=== PATIENT | female | born 1980 | race Caucasian/White ===

== ENCOUNTER 2024-04-27 20:01 | Observation (INO) ==
--- NOTE | 2024-04-27 20:28 | ED.PDOC ---
General ED Provider: Dr. KATHARINE COX Chief Complaint: Extremity Swelling/Pain Stated Complaint: Patient is a 44-year-old female who comes to the emergency department with complaints of a 1 week history of right leg being more swollen than the left. She states he has a history of CHF and also has a history of DVT x 3 all of which were due to immobilization secondary to his surgery. Patient states that she has been out of her diabetic medication for couple months now and has not been checking her blood sugar either. She states she moved from [place] and is trying to find a new primary care doctor in [place]. Time Seen by Provider: 04/27/24 20:21 Mode of Arrival: Walk-In Information Source: Patient and Family Nursing and Triage Documentation Reviewed and Agree: Yes What is Opioid Naive?: *Opioid Naive implies the patient is not already taking opioids or not chronically receiving opioids on a daily basis. *PRN dosing is not "usually" associated with tolerance. *Patients are at higher risk of over-sedation and aspiration. What is Opioid Tolerant?: *Opioid Tolerance implies less than the expected response to an opioid. *Acquired tolerance is defined by the patient taking 60mg of oral morphine daily (or equianalgesic dose of another opioid) for 1 week or more. *Often associated with chronic pain. *May take more than usual dose to achieve desired pain control. Musculoskeletal Complaint Exam Lower Extremity Complaint/Exam Location of Pain: Reports Right and Leg Mechanism of Injury: Reports No known trauma Onset/Duration: 1 week Symptoms Are: Still present Initial Severity: Moderate Current Severity: Moderate Location: Reports Diffuse Character: Reports Aching and Throbbing Alleviating: Reports None Aggravating: Reports Movement Able to Bear Weight: Yes Associated Signs and Symptoms: Reports Redness DVT Risk Factors: Reports Prior PE Related Surgical History: Reports None Lower Extremity Findings: Present Swelling, Erythema and Tenderness Differential Diagnoses: Septic Arthritis, Strain and Other (cellulitis ) Review of Systems Review Of Systems Constitutional: Reports No symptoms [facility] Medical History (Updated 04/28/24 @ 00:22 by MACK AGUILAR RN) Ventral hernia K43.9 - Ventral hernia without obstruction or gangrene (ICD-10) Sleep apnea G47.30 - Sleep apnea, unspecified (ICD-10) Sepsis A41.9 - Sepsis, unspecified organism (ICD-10) Ovarian abscess N70.92 - Oophoritis, unspecified (ICD-10) Aortic aneurysm I71.9 - Aortic aneurysm of unspecified site, without rupture (ICD-10) Hypertension I10 - Essential (primary) hypertension (ICD-10) Diabetes E11.9 - Type 2 diabetes mellitus without complications (ICD-10) CHF (congestive heart failure) I50.9 - Heart failure, unspecified (ICD-10) Family History (Updated 04/28/24 @ 00:22 by MACK AGUILAR, JEAN) FATHER Cancer Mother Cancer Social History (Updated 04/28/24 @ 00:22 by MACK AGUILAR, RN) Smoking and tobacco status: Current every day smoker Tobacco type: cigarettes Surgical History (Updated 04/28/24 @ 00:22 by MACK AGUILAR, JEAN) History of hysterectomy Z90.710 - Acquired absence of both cervix and uterus (ICD-10) Female Reproductive History Menstrual Hx Hysterectomy: No Hx Tubal Ligation: No Physical Exam Physical Exam Appearance: Reports Obese Pain Distress: Moderate Respiratory: Reports Airway patent, Breath sounds clear and Breath sounds equal Cardiovascular: Reports RRR, Pulses normal and No rub Musculoskeletal: Reports Edema Skin: Reports Warm, Dry and Other (right lower extremity Erythema ) Psychiatric: Reports Anxious Physician Notification Case Discussed Physician Notified: Samantha Torres Time of Notification: 23:04 (Accepted for admission for observation.) Course Course 04/27/24 20:55 04/27/24 20:55 Orders, Labs, Meds: Lab Review 04/27/24 04/27/24 20:55 22:06 WBC 9.56 RBC 4.35 Hgb 12.1 Hct 36.9 L MCV 84.8 MCH 27.8 MCHC 32.8 RDW Coeff of Lainey 13.1 Plt Count 158 Immature Gran % (Auto) 0.3 Neut % (Auto) 66.0 Lymph % (Auto) 24.2 [place] % (Auto) 5.8 Eos % (Auto) 3.1 Baso % (Auto) 0.6 Neut # (Auto) 6.3 Lymph # (Auto) 2.3 [place] # (Auto) 0.6 Eos # (Auto) 0.3 Baso # (Auto) 0.1 Immature Gran # (Auto) 0.0 Sodium 136.3 Potassium 3.78 Chloride 101.2 Carbon Dioxide 30.2 H Anion Gap 8.68 BUN 15.3 Creatinine 1.06 Estimated GFR (MDRD) 56.00 BUN/Creatinine Ratio 14.43 Glucose 407.4 H Calcium 8.94 Magnesium 1.68 Total Bilirubin 0.61 AST 15.3 ALT 14.1 Alkaline Phosphatase 133.2 H NT-Pro-B Natriuret Pep 371 H Total Protein 7.26 Albumin 3.66 Globulin 3.60 Albumin/Globulin Ratio 1.01 D-Dimer 1752.63 H SARS CoV-2 RNA Rapid LISHA Negative Orders Category Date Time Status ADMIT OBSERVATION [PLACE PATIENT OBSERVATION] .TO ADMISSION 04/27/24 23:05 Active MEDSURG (NON-MONITORED BED) ACTIVITY .Up ad Kanwal CARE 04/27/24 23:05 Active BLOOD GLUCOSE MONITORING (MED/SURG) 0630,1100,1700,2100 CARE 04/27/24 23:07 Active GIVE HS SNACK 2100 CARE 04/27/24 23:06 Active INTAKE & OUTPUT Q8HR CARE 04/27/24 23:06 Active IP: INSERT SALINE LOCK ONCE CARE 04/27/24 23:06 Active REMINDER: Give Insulin if Needed Q4HR CARE 04/27/24 23:05 Active VITAL SIGNS Q8HR CARE 04/27/24 23:06 Active ADA 1800 MARIA R. DIET DIETARY 04/28/24 Breakfast Ordered HS SNACK DIETARY 04/27/24 Dinner Ordered BASIC METABOLIC PANEL DAILY@0600 LAB 04/28/24 05:26 Received BASIC METABOLIC PANEL DAILY@0600 LAB 04/29/24 06:00 Ordered BLOOD CULTURE (ED ONLY) Stat LAB 04/27/24 20:46 Received CBC W/ AUTO DIFF DAILY@0600 LAB 04/28/24 05:26 Received CBC W/ AUTO DIFF DAILY@0600 LAB 04/29/24 06:00 Ordered CBC W/ AUTO DIFF Stat LAB 04/27/24 20:55 Completed CMP [COMPREHENSIVE METABOLIC PANEL] Stat LAB 04/27/24 20:55 Completed COVID [SARS COV-2 RNA RAPID LISHA] Stat LAB 04/27/24 22:06 Completed D-DIMER Stat LAB 04/27/24 20:55 Completed MAGNESIUM Stat LAB 04/27/24 20:55 Completed NT-PROBNP(ED) Stat LAB 04/27/24 20:55 Completed Cefazolin Sodium [Ancef] Meds 04/27/24 23:07 Discontinued 1 gm .ROUTE .STK-MED ONE Cefazolin Sodium [Ancef] 1 gm Meds 04/27/24 22:56 Discontinued 0.9 % Sodium Chloride [Sodium Chloride] 50 ml IV ONCE Cefazolin Sodium/Dextrose,Iso [Ancef 1 gm/50 ml D5w] Meds 04/27/24 23:05 Discontinued 1 gm in 50 ml IV ONCE Enoxaparin Sodium [Lovenox] Meds 04/27/24 22:56 Discontinued 150 mg SUBCUT ONCE ONE Enoxaparin Sodium [Lovenox] Meds 04/28/24 09:00 Active 150 mg SUBCUT Q12HR Insulin Regular, Human [Humulin R (10Ml)] Meds 04/27/24 21:50 Discontinued 12 unit SUBCUT ONCE ONE Insulin Regular, Human [Humulin R (10Ml)] Meds 04/27/24 23:10 Active See Protocol SUBCUT PRN PRN Sodium Chloride 0.9% [Sodium Chloride] 1,000 ml Meds 04/27/24 23:30 Active IV 75 mls/hr RESUSCITATION STATUS Routine OTHERS 04/27/24 23:05 Ordered Medications Generic Name Dose Route Start Last Admin Trade Name Freq PRN Reason Stop Dose Admin Atorvastatin Calcium 40 mg 04/28/24 00:50 04/28/24 01:54 Atorvastatin Calcium 20 Mg Tablet PO Not Given QPM JUWAN Bupropion HCl 150 mg 04/28/24 09:00 Bupropion Hcl 150 Mg Tab.Er.24h PO DAILY JUWAN Clonidine 0.1 mg 04/28/24 00:50 04/28/24 02:00 Clonidine Hcl 0.1 Mg Tablet PO 0.1 mg BEDTIME JUWAN Administration Doxepin HCl 50 mg 04/28/24 17:00 Doxepin Hcl 25 Mg Capsule PO QPM JUWAN Enoxaparin Sodium 150 mg 04/28/24 09:00 Enoxaparin Sodium 150 Mg/Ml Syr SUBCUT Q12HR JUWAN Sodium Chloride 1,000 mls @ 75 mls/hr 04/27/24 23:30 04/28/24 00:06 Sodium Chloride IV 75 mls/hr .[id number] JUWAN Administration Cefazolin Sodium/Dextrose 1 gm in 50 mls @ 75 mls/hr 04/28/24 07:00 Ancef 1 Gm/50 Ml D5w IV 05/01/24 06:59 Q8H JUWAN Insulin Human Regular 0 unit 04/27/24 23:10 Insulin Regular, Human 100 Unit/Ml (10ml) Vial SUBCUT PRN PRN Hyperglycemia Protocol Loratadine 10 mg 04/28/24 09:00 Loratadine 10 Mg Tablet PO DAILY JUWAN Losartan Potassium 25 mg 04/28/24 09:00 Losartan Potassium 25 Mg Tablet PO DAILY JUWAN Meclizine HCl 25 mg 04/28/24 00:48 Meclizine Hcl 25 Mg Tablet PO TID PRN Dizziness Montelukast Sodium 10 mg 04/28/24 09:00 Montelukast Sodium 10 Mg Tablet PO DAILY JUWAN Pantoprazole Sodium 40 mg 04/28/24 09:00 Pantoprazole Sodium 40 Mg Tablet.Dr PO BID JUWAN Sertraline HCl 100 mg 04/28/24 09:00 Sertraline Hcl 50 Mg Tablet PO BID JUWAN Discontinued Medications Generic Name Dose Route Start Last Admin Trade Name Freq PRN Reason Stop Dose Admin Enoxaparin Sodium 150 mg 04/27/24 22:56 04/27/24 23:11 Enoxaparin Sodium 150 Mg/Ml Syr SUBCUT 04/27/24 22:57 150 mg ONCE ONE Administration Cefazolin Sodium 1 gm/ Sodium 50 mls @ 75 mls/hr 04/27/24 22:56 04/27/24 23:11 Chloride IV 04/27/24 23:35 75 mls/hr ONCE ONE Administration Cefazolin Sodium/Dextrose 1 gm in 50 mls @ 75 mls/hr 04/27/24 23:05 04/28/24 00:10 Ancef 1 Gm/50 Ml D5w IV 04/27/24 23:44 Not Given ONCE ONE Insulin Human Regular 12 unit 04/27/24 21:50 04/27/24 22:33 Insulin Regular, Human 100 Unit/Ml (10ml) Vial SUBCUT 04/27/24 21:51 12 unit ONCE ONE Administration Vital Signs: Temp Pulse Resp BP Pulse Ox 04/27/24 20:04 98.1 F 102 H 20 114/67 96 Discharge Plan Discharge Patient Disposition: PLACED OBSERVATION Discharge Problem: Edema of lower extremity, Cellulitis of right lower extremity without foot, Poorly controlled diabetes mellitus Did you review [place] [employer] MANAGER for ALL controlled substances?: Not Applicable ED Provider: KATHARINE COX Condition: Good
[2024-04-27 21:03] LABS: BASOPHILS # (AUTO) 0.1 K/uL (0-0.2); BASOPHILS % (AUTO) 0.6 % (0.0-3.0); EOSINOPHILS # (AUTO) 0.3 K/ul (0.0-0.7); EOSINOPHILS % (AUTO) 3.1 % (0.0-7.0); HEMATOCRIT 36.9 % (37.0-47.0); HEMOGLOBIN 12.1 g/dl (12.0-16.0); IMMATURE GRANULOCYTE % (AUTO) 0.3 % (0.0-5.0); LYMPHOCYTES # (AUTO) 2.3 K/uL (0.60-3.4); LYMPHOCYTES % (AUTO) 24.2 (10.0-50.0); MEAN CORPUSCULAR HEMOGLOBIN 27.8 pg (27.0-31.0); MEAN CORPUSCULAR HGB CONC 32.8 (31.8-35.4); MEAN CORPUSCULAR VOLUME 84.8 fl (81.0-99.0); MONOCYTES # (AUTO) 0.6 K/uL (0.4-2.0); MONOCYTES % (AUTO) 5.8 (0-10); NEUTROPHILS # (AUTO) 6.3 K/ul (2.0-6.9); PLATELET COUNT 158 10^3/uL (140-440); RDW COEFFICIENT OF VARIATION 13.1 % (11.6-14.8); RED BLOOD COUNT 4.35 10^6/ul (4.20-5.40); WHITE BLOOD COUNT 9.56 K/ul (4.6-10.2)
[2024-04-27 21:17] LABS: ALANINE AMINOTRANSFERASE 14.1 U/L (0-35); ALBUMIN 3.66 g/dL (3.5-5.0); ALKALINE PHOSPHATASE 133.2 U/L (38-126); ASPARTATE AMINO TRANSFERASE 15.3 U/L (14-36); BILIRUBIN,TOTAL 0.61 mg/dL (0.2-1.3); BLOOD UREA NITROGEN 15.3 mg/dL (7-17); CALCIUM 8.94 mg/dL (8.4-10.2); CARBON DIOXIDE 30.2 mmol/L (22-30.0); CHLORIDE 101.2 mmol/L (98-107); CREATININE 1.06 mg/dL (0.60-1.30); GLUCOSE 407.4 mg/dL (74-106); MAGNESIUM 1.68 mg/dL (1.6-2.3); POTASSIUM 3.78 mmol/L (3.5-5.1); SODIUM 136.3 mmol/L (134.5-145); TOTAL PROTEIN 7.26 g/dL (6.3-8.2)
[2024-04-27] MEDS: HUMULIN R (10ML) SUBCUT ONE (22:33)
[2024-04-27 22:50] LABS: SARS COV-2 RNA RAPID NAAT NEGATIVE (NEGATIVE)
[2024-04-27] MEDS: LOVENOX SUBCUT ONE (23:11)
[2024-04-27] MEDS: ANCEF 1 GM in SODIUM CHLORIDE 50 ML IV ONE (23:11)
[2024-04-28] MEDS: SODIUM CHLORIDE 1,000 ML IV SCH (00:06)
[2024-04-28] MEDS: ANCEF 1 GM/50 ML D5W 1 GM/50 ML BAG IV ONE (00:10)
[2024-04-28 00:12] VITALS: BMI 54.2
[2024-04-28] MEDS: ANCEF ONE (00:13)
[2024-04-28] MEDS ORDERED: ANTIVERT PO PRN (00:48)
[2024-04-28] MEDS: LIPITOR PO SCH (01:54)
[2024-04-28] MEDS: CATAPRES PO SCH (02:00)
[2024-04-28 05:38] LABS: BASOPHILS # (AUTO) 0.1 K/uL (0-0.2); BASOPHILS % (AUTO) 0.6 % (0.0-3.0); EOSINOPHILS # (AUTO) 0.3 K/ul (0.0-0.7); EOSINOPHILS % (AUTO) 3.5 % (0.0-7.0); HEMATOCRIT 33.7 % (37.0-47.0); HEMOGLOBIN 10.8 g/dl (12.0-16.0); IMMATURE GRANULOCYTE % (AUTO) 0.3 % (0.0-5.0); LYMPHOCYTES # (AUTO) 2.8 K/uL (0.60-3.4); LYMPHOCYTES % (AUTO) 31.9 (10.0-50.0); MEAN CORPUSCULAR HEMOGLOBIN 27.6 pg (27.0-31.0); MONOCYTES # (AUTO) 0.6 K/uL (0.4-2.0); MONOCYTES % (AUTO) 6.5 (0-10); NEUTROPHILS % (AUTO) 57.2 % (42.2-75.2); PLATELET COUNT 153 10^3/uL (140-440); RDW COEFFICIENT OF VARIATION 13.2 % (11.6-14.8); RED BLOOD COUNT 3.92 10^6/ul (4.20-5.40); WHITE BLOOD COUNT 8.79 K/ul (4.6-10.2)
[2024-04-28 05:39] VITALS: BP 147/86; PULSE 78; TEMP 97
[2024-04-28 05:49] LABS: CALCIUM 8.63 mg/dL (8.4-10.2); CARBON DIOXIDE 30.6 mmol/L (22-30.0); CHLORIDE 102.7 mmol/L (98-107); CREATININE 1.03 mg/dL (0.60-1.30); POTASSIUM 3.6 mmol/L (3.5-5.1); SODIUM 137.6 mmol/L (134.5-145)
[2024-04-28] MEDS: HUMULIN R (10ML) SUBCUT PRN (06:09)
[2024-04-28] MEDS ORDERED: ANCEF 1 GM/50 ML D5W 1 GM/50 ML BAG IV SCH (07:00)
[2024-04-28] MEDS: ANCEF 1 GM/50 ML D5W 1 GM/50 ML BAG IV SCH (07:26)
[2024-04-28] MEDS: WELLBUTRIN XL PO SCH (08:41)
[2024-04-28] MEDS: CLARITIN PO SCH (08:41)
[2024-04-28] MEDS: PROTONIX PO SCH (08:42)
[2024-04-28] MEDS: ZOLOFT PO SCH (08:42)
[2024-04-28] MEDS: SINGULAIR PO SCH (08:43)
[2024-04-28] MEDS: COZAAR PO SCH (08:44)
[2024-04-28] MEDS: LOVENOX SUBCUT SCH (08:45)
[2024-04-28 09:48] VITALS: RESP 20
--- NOTE | 2024-04-28 12:28 | US ---
EXAM: RIGHT LOWER EXTREMITY VENOUS DOPPLER. HISTORY: Right lower extremity pain and swelling. COMPARISON: None. TECHNIQUE: A duplex Doppler study was performed consisting of integrated two dimensional (2D) real-t florencio imaging color flow Doppler and Doppler spectral analysis utilizing linear array probes. FINDINGS: There is normal flow, venous waveforms, compressibility and augmentation of flow within th e right common femoral, greater saphenous, profunda, femoral, popliteal, posterior tibial, anterior t ibial and peroneal veins. Mild subcutaneous edema present. IMPRESSION: No evidence for right lower extremity deep vein thrombosis at the levels examined.
--- NOTE | 2024-04-28 12:32 | PCM.SS ---
Provider Provider: Ashley Mi PA-C, [facility] Admission Date Admission Date: 04/27/24 Discharge Date Discharge Date: 04/28/24 Chief Complaint Reason For Visit: RIGHT LOWER EXTREMITY CELLULITIS/EDEMA History of Present Illness History of Present Illness: Admitted 04/27/24 23:21, this 44 year old /WHITE/F with pmhx of SABA, hypertension, DMT2, CHF, anxiety, hyperlipidemia who presents to the ER for RLE redness and swelling. She states she has hx of DVT x3 times, once following , once after a surgery. She has not been on halfway anticoagulants. She actually needs a PCP and has been out of her usual medications. In ER d dimer was elevated as was her glucose. Otherwise unremarkable work up. RLE was noted to be erythematous. She was given cefazolin. No ultrasound was available overnight so she was admitted to med surg. US today of RLE was negative for DVT. Discussed her cellulitis being very mild, but in setting of her uncontrolled diabetes, and with shared patient decision making it was opted to start keflex outpatient for 5 days. Will also give refills on her home meds until she can see a new PCP next week. Pt agrees to plan of care. [facility] Medical History Ventral hernia K43.9 - Ventral hernia without obstruction or gangrene (ICD-10) Sleep apnea G47.30 - Sleep apnea, unspecified (ICD-10) Sepsis A41.9 - Sepsis, unspecified organism (ICD-10) Ovarian abscess N70.92 - Oophoritis, unspecified (ICD-10) Aortic aneurysm I71.9 - Aortic aneurysm of unspecified site, without rupture (ICD-10) Hypertension I10 - Essential (primary) hypertension (ICD-10) Diabetes E11.9 - Type 2 diabetes mellitus without complications (ICD-10) CHF (congestive heart failure) I50.9 - Heart failure, unspecified (ICD-10) Surgical History History of hysterectomy Z90.710 - Acquired absence of both cervix and uterus (ICD-10) Family History FATHER Cancer Mother Cancer Social History Smoking and tobacco status: Current every day smoker Tobacco type: cigarettes Medications Mecications: Medications at Discharge (Home Meds & RX) empagliflozin 25 mg tablet (Jardiance) 25 mg PO DAILY 07/29/22 atorvastatin 40 mg tablet 40 mg PO QPM 04/03/24 bupropion HCl 150 mg 24 hr tablet, extended release 150 mg PO DAILY 04/03/24 cetirizine 10 mg tablet (24Hour Allergy) 10 mg PO DAILY 04/03/24 clonidine HCl 0.1 mg tablet 0.1 mg PO BEDTIME 04/03/24 doxepin 50 mg capsule 50 mg PO QPM 04/03/24 losartan 25 mg tablet 25 mg PO DAILY 04/03/24 meclizine 25 mg tablet 25 mg PO TID PRN motion sickness #21 tabs 04/03/24 montelukast 10 mg tablet 10 mg PO DAILY 04/03/24 pantoprazole 40 mg tablet,delayed release 40 mg PO BID 04/03/24 sertraline 100 mg tablet 100 mg PO BID 04/03/24 Allergies Allergies Allergy/AdvReac Type Severity Reaction Status Date / Time latex AdvReac Verified 04/27/24 20:14 morphine AdvReac Verified 04/27/24 20:14 Review of Systems Constitutional: Denies Fever or Loss of appetite Head: Reports Normocephalic and Atraumatic Cardiovascular: Reports Edema; Denies Chest pain Respiratory: Denies Cough or Shortness of air Gastrointestinal: Denies Nausea, Vomiting, Diarrhea, Abdominal pain or Melena Genitourinary: Denies Dysuria or Frequency Dermatologic: Reports Rashes (redness of RLE ) Neurological: Denies Weakness Psychiatric: Reports Anxiety Physical Examination Appearance: Positive No Apparent Distress, Alert and Oriented x3, Obese and Ot her (+Appears older than stated age ) Head: Positive Normocephalic and Atraumatic Neck: Positive Supple Heart: Positive RRR Respiratory: Positive Breath Sounds Clear, Bilaterally and Respirations Nonlabored; Negative Crackles, Rhonchi or Wheezes GI/: Positive Soft, Nontender, Bowel sounds normal and No Distention Extremities: Positive Edema (+nonpitting edema. RLE with mild anterior leg erythema and warmth compared to left. Pulses intact. ) Neurological: Positive Cranial nerves intact, Alert and Oriented Psychiatric: Positive Normal Judgement, Normal Insight, Affect Appropriate and Mood Appropriate Vital Signs (Last 4 Hours) Vital Signs Last 4 Hours: Vital Signs: Last 4 Hours 04/28/24 09:00 04/28/24 10:00 Oxygen Delivery Method Nasal Cannula Nasal Cannula Labs This Visit Labs This Visit: Labs This Visit 04/27/24 04/27/24 04/28/24 20:55 22:06 05:26 WBC 9.56 8.79 RBC 4.35 3.92 L Hgb 12.1 10.8 L Hct 36.9 L 33.7 L MCV 84.8 86.0 MCH 27.8 27.6 MCHC 32.8 32.0 RDW Coeff of Lainey 13.1 13.2 Plt Count 158 153 Immature Gran % (Auto) 0.3 0.3 Neut % (Auto) 66.0 57.2 Lymph % (Auto) 24.2 31.9 [place] % (Auto) 5.8 6.5 Eos % (Auto) 3.1 3.5 Baso % (Auto) 0.6 0.6 Neut # (Auto) 6.3 5.0 Lymph # (Auto) 2.3 2.8 [place] # (Auto) 0.6 0.6 Eos # (Auto) 0.3 0.3 Baso # (Auto) 0.1 0.1 Immature Gran # (Auto) 0.0 0.0 Sodium 136.3 137.6 Potassium 3.78 3.60 Chloride 101.2 102.7 Carbon Dioxide 30.2 H 30.6 H Anion Gap 8.68 7.90 BUN 15.3 18.0 H Creatinine 1.06 1.03 Estimated GFR (MDRD) 56.00 58.00 BUN/Creatinine Ratio 14.43 17.47 Glucose 407.4 H 241.0 H D Calcium 8.94 8.63 Magnesium 1.68 Total Bilirubin 0.61 AST 15.3 ALT 14.1 Alkaline Phosphatase 133.2 H NT-Pro-B Natriuret Pep 371 H Total Protein 7.26 Albumin 3.66 Globulin 3.60 Albumin/Globulin Ratio 1.01 D-Dimer 1752.63 H SARS CoV-2 RNA Rapid LISHA Negative Imaging Imaging: EXAM: RIGHT LOWER EXTREMITY VENOUS DOPPLER. HISTORY: Right lower extremity pain and swelling. COMPARISON: None. TECHNIQUE: A duplex Doppler study was performed consisting of integrated two dimensional (2D) real-time imaging color flow Doppler and Doppler spectral analysis utilizing linear array probes. FINDINGS: There is normal flow, venous waveforms, compressibility and augmentation of flow within the right common femoral, greater saphenous, profunda, femoral, popliteal, posterior tibial, anterior tibial and peroneal veins. Mild subcutaneous edema present. IMPRESSION: No evidence for right lower extremity deep vein thrombosis at the levels examined. Review Review Statement: I have independently reviewed and interpreted the labs/EKGs/imaging that were ordered by the ER provider. I have reviewed all outside records that are available currently in our EMR including imaging/notes/labs from previous visits. Plan Reccomendations/Plan: 1. RLE swelling - US not available in ER overnight. D dimer elevated. Hx of DVTs. Lovenox treatment dose ordered. US ordered of RLE. 2. Cellulitis of RLE, mild - Cefazolin ordered, no draining wounds 3. DMT2 - Humalog with accuchecks, diabetic diet, restart home jardiance 4. Hypertension - Cont home meds 5. Hyperlipidemia - Cont home meds 6. SABA - Continue CPAP 7. CHF, unknown type - Not on diuretics US today of RLE was negative for DVT. Discussed her cellulitis being very mild, but in setting of her uncontrolled diabetes, and with shared patient decision making it was opted to start keflex outpatient for 5 days. Will also give refills on her home meds until she can see a new PCP next week. Pt agrees to plan of care. Discharge diagnoses: 1. Cellulitis of RLE, mild, improved 2. DMT2 3. Hypertension 4. Hyperlipidemia 5. SABA 6. Hx of multiple DVTs 7. CHF, unknown type Additional Planning: Case discussed with ED Physician, Dr. Keller. DVT Prophylaxis: Lovenox Advanced Care Plannin minutes spent discussing advance care planning. Smoking Cessation: 3 minutes spent discussing smoking cessation. Admit to: Obs Discussed Plan of Care with Dr. Saranya Raymond. Review With Patient Reviewed with Patient and Family: Patient and family have been counseled on condition and care plan and have no immediate questions. I have personally discussed and reviewed the patient's visit/current labs/imaging/decision making with Dr. Saranya Raymond, my supervising attending. Total number of minutes spent with patient [ 85] min. More than 50% of the time spent with this patient was devoted to counseling and coordination of care. Time of Admission:04/27/24 23:21 Time of Discharge: 04/28/24 1030 Discharge Plan Discharge Discharge Orders: Discharge Patient (ONCE); Ordered 04/28/24 Ordered By: ASHLEY MI Activity Restrictions/Additional Instructions: DISCHARGE TO HOME DX: RLE REDNESS AND SWELLING NO STRENOUS ACTIVITY UNTIL YOU FOLLOW UP WITH BR[facility] MCLEAN KEEP LEGS ELEVATED THROUGH THE DAY YOUR ULTRASOUND WAS NORMAL PHARMACY: [facility] PRESCRIBED FOR MILD CELLULITIS PLEASE FOLLOW UP WITH PCP FOR FURTHER REFILLS OF YOUR REGULAR MEDICATIONS WE HAVE SCHEDULED A HOSPITAL FOLLOW UP WITH MANOJ MCLEAN. [facility] WILL BE IN CONTACT WITH YOU TO ESTABLISH CARE A NEW PATIENT WITH THEIR FACILITY. IF YOU HAVE ANY QUESTIONS YOU CAN CONTACT THEIR OFFICE AT [phone]. Instructions: Cephalexin (By mouth), Cellulitis (GEN) Patient Disposition: HOME SELF-CARE Prescriptions: New cephalexin 500 mg capsule 500 mg PO BID 5 Days Qty: 10 0RF Rx Instructions: START 04/29 Continued sertraline 100 mg tablet 100 mg PO BID doxepin 50 mg capsule 50 mg PO QPM atorvastatin 40 mg tablet 40 mg PO QPM meclizine 25 mg tablet 25 mg PO TID PRN (Reason: motion sickness) Qty: 21 0RF clonidine HCl 0.1 mg tablet 0.1 mg PO BEDTIME Qty: 30 0RF cetirizine [24Hour Allergy] 10 mg tablet 10 mg PO DAILY Qty: 30 0RF pantoprazole 40 mg tablet,delayed release (DR/EC) 40 mg PO BID Qty: 60 0RF losartan 25 mg tablet 25 mg PO DAILY Qty: 30 0RF montelukast 10 mg tablet 10 mg PO DAILY Qty: 30 0RF bupropion HCl 150 mg tablet extended release 24 hr 150 mg PO DAILY Qty: 30 0RF Jardiance 25 mg tablet 25 mg PO DAILY Qty: 30 0RF carvedilol 6.25 mg tablet 6.25 mg PO BID Qty: 60 0RF Rx Instructions: must administer with a meal/food Did you review [place] [employer]ELDER for ALL controlled substances?: Not Applicable Discussed opioids are addictive and Narcan is available by prescription or from pharmacy.: No Condition: Good Referrals: MANOJ MCLEAN APRN,AYSHAPBC [NURSE PRACTITIONER] - 05/04/24 3:15 pm
[2024-04-28] MEDS ORDERED: SINEQUAN PO SCH (17:00)
== END 2024-04-28 14:00 | disposition home or self-care (01) ==
LOC: MEDSURG B 20:01 → ED 20:01 → MEDSURG B 23:59
PROVIDERS: ADMIT Hospitalist; ATTEND Hospitalist
DX: Z91.199 Patient's noncompliance with other medical treatment and regimen due to unspecified reason; I50.9 Heart failure, unspecified; R60.0 Localized edema; I10 Essential (primary) hypertension; L03.115 Cellulitis of right lower limb; E11.65 Type 2 diabetes mellitus with hyperglycemia; R79.1 Abnormal coagulation profile; G47.33 Obstructive sleep apnea (adult) (pediatric); Z20.822 Contact with and (suspected) exposure to COVID-19; Z86.718 Personal history of other venous thrombosis and embolism; E78.5 Hyperlipidemia, unspecified; F17.210 Nicotine dependence, cigarettes, uncomplicated